=== PATIENT | male | born 2005 | race African-American/Black ===

== ENCOUNTER 2023-06-28 20:02 | Emergency (ER) | payer MEDICAID, SELFPAY ==
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
[2023-06-28 20:39] VITALS: BP 139/84; PULSE 61; RESP 16; TEMP 37; O2SAT 99; BMI 19.8
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
[2023-06-28] MEDS: Acetaminophen 325 MG TABLET 975 MG PO (22:56)
[2023-06-28] MEDS: Lidocaine 4 % Patch ADH..PATCH 1 PATCH TRANSDERMA (22:56)
[2023-06-28] MEDS: Ibuprofen 400 MG TABLET PO (22:56)
== END 2023-06-28 23:02 | disposition home or self-care (01) ==
PROVIDERS: Emergency Provider Student in an Organized Health Care Education/Training Program
DX: S16.1XXA Strain of muscle, fascia and tendon at neck level, initial encounter (principal); M54.2 Cervicalgia; R51.9 Headache, unspecified; M54.50 Low back pain, unspecified; V43.12XA Car passenger injured in collision with other type car in nontraffic accident, initial encounter; Y93.9 Activity, unspecified; Y92.410 Unspecified street and highway as the place of occurrence of the external cause; Y99.9 Unspecified external cause status
CPT/HCPCS: 72040; 72100; 99283

== ENCOUNTER 2023-12-18 02:58 | Emergency (ER) | payer MEDICAID, SELFPAY ==
[2023-12-18 03:02] VITALS: BP 163/93; PULSE 67; RESP 18; TEMP 36.8; O2SAT 97; BMI 18.8
--- NOTE | 2023-12-18 03:26 | ED_ITS ---
HPI - Allergic Reaction General Chief complaint: Allergic Reaction Stated complaint: allergic reaction Time Seen by Provider: 12/18/23 03:12 Source: patient and family (Mother) Mode of arrival: ambulatory Limitations: no limitations History of Present Illness HPI narrative: A 18-year-old male brought in by his mother for acute eruption of hives and itching after eating taco dip with lattice that was home made, patient and mother confirmed that patient had the same ingredient in the past without reaction. Never had allergic reaction in the past, no known allergies. Complaining of diffuse hives, itching, and swelling in the face, feels throat tightness with no difficulty breathing. Related Data Allergies Allergy/AdvReac Type Severity Reaction Status Date / Time No Known Allergies Allergy Verified 12/18/23 03:02 Review of Systems Review of Systems: All other systems are reviewed and are negative Constitutional: Reports as per HPI and Reports no additional constitutional complaints Eyes: Reports as per HPI and Reports no additional eye complaints Reports system reviewed and no additional complaints, except as documented Cardiovascular: Reports as per HPI and Reports no additional cardiovascular complaints Respiratory: Reports as per HPI and Reports no additional respiratory complaints Gastrointestinal: Reports as per HPI and Reports no additional gastrointestinal complaints Genitourinary: Reports no additional female genitourinary complaints Musculoskeletal: Reports no additional musculoskeletal complaints Skin/Breast: Reports system reviewed and no additional complaints, except as docu Psychiatric: Reports no additional psychiatric complaints Endocrine: Reports no additional endocrine complaints Hematologic/Lymphatic: Reports no additional hematologic/lymphatic complaints Allergic/Immunologic: Reports no additional allergic/immunologic complaints Reports system reviewed and no additional complaints, except as documented and Reports Abnormal speech present [facility] Social History Social History Alcohol intake: never Smoked in Last 30 Days: No Use of substances other than those prescribed or required for medical reasons: Yes Substance Use Type: Marijuana Substance Use Frequency: Daily Advance Directives: No Physical Exam ED Vital Signs: Vital Signs - 24 hr 12/18/23 03:02 Temperature 98.2 F Pulse Rate 67 Respiratory Rate 18 Blood Pressure 163/93 H Pulse Oximetry 97 Oxygen Delivery Method Room Air BMI result Body Mass Index 18.8 Vital signs have been reviewed and appear to be correct. Blood pressure elevated. Heart rate normal. Respiratory rate normal. Temperature normal. O xygen saturation normal. Appearance: Alert. Oriented X3. No acute distress. Head: Normal external exam. Normocephalic. Atraumatic. No Dent signs noted. No raccoon eyes noted Eyes: PERRLA. EOMI. Conjunctiva and sclera normal. Eyelids normal. ENT: TM's Normal. Pharynx normal. Uvula midline. Moist mucous membranes. No trismus noted. No drooling noted. No muffled voice noted. Neck: Normal inspection. Neck supple. FROM. No adenopathy. Thyroid Normal. No meningeal signs. No neck mass noted. CVS: Normal heart rate and rhythm. Heart sound normal. No murmurs noted. Pulses normal throughout. Respiratory: No respiratory distress. Painless inspiration. Breath sounds normal. No wheezes/rales/rhonchi noted. Chest nontender. No accessory muscle usage noted or decreased air movement noted. Abdomen: Soft and nontender. Bowel sounds normal in all 4 quadrants. No distention noted. No organomegaly noted. No visible injury noted. Back: No CVA tenderness. Full range of motion noted. Skin: Diffuse hives on extremities and torso, aubrey orbital swelling. Extremities: No lower extremity edema. Extremities exhibit normal range of motion. Extremities nontender. Neuro: Oriented X 3. Cranial nerve exam: II-XII are grossly intact No motor deficit. No sensory deficit. Reflexes normal. Course Reevaluation(s) Reevaluation #1: Complete resolution of patient's symptoms, patent airway. Patient is allergic to 1 of the ingredients of taco dip or lattice patient was instructed to avoid all the ingredient in the future. Time: 05:30 Medications Administered Discontinued Medications Generic Name Dose Route Start Last Admin Trade Name Aaronq PRN Reason Stop Dose Admin Diphenhydramine HCl 25 mg 12/18/23 03:12 12/18/23 03:31 Diphenhydramine Hcl 50 Mg/Ml Vial IVPUSH 12/18/23 03:13 25 mg ONCE ONE Administration Famotidine 20 mg 12/18/23 03:12 12/18/23 03:31 Famotidine/Pf 20 Mg/2 Ml Vial IVPUSH 12/18/23 03:13 20 mg ONCE ONE Administration Sodium Chloride 1,000 mls @ 999 mls/hr 12/18/23 03:12 12/18/23 04:40 Ns IV 12/18/23 04:12 Infused .Q1H1M ONE Infusion Methylprednisolone Sodium Succinate 125 mg 12/18/23 03:12 12/18/23 03:31 Methylprednisolone Sod Succ 125 Mg/2 Ml Vial IVPUSH 12/18/23 03:13 125 mg ONCE ONE Administration Medical Decision Making Differential Diagnosis Differential Diagnoses: The differential diagnosis associated with the presentation includes (Allergic reaction, airway compromise.) Admission/Observation Consideration of admission/observation: Escalation of care including admission/observation considered Critical Care Time Critical Care Time Critical Care Time: Yes Total Critical Care Time: 45 Attestation: I spent 60 minutes providing critical care service to the patient, this including time spent at the bedside to evaluate the patient, reassess the patient, monitoring vital signs, counseling the patient/family, disposition the patient. Discharge Plan Discharge Clinical Impression: Allergic reaction, Urticaria Patient Disposition: Home, Self-Care Instructions: Food Allergy (ED) Referrals: An Joaquin NP [Primary Care Provider] -
[2023-12-18] MEDS: Famotidine/PF 20 MG/2 ML VIAL IVPUSH (03:31)
[2023-12-18] MEDS: methylPREDNISolone Sod Succ 125 MG/2 ML VIAL IVPUSH (03:31)
[2023-12-18] MEDS: diphenhydrAMINE HCL 50 MG/ML VIAL 25 MG IVPUSH (03:31)
[2023-12-18] MEDS: 0.9 % Sodium Chloride 1,000 ML 999 ML IV (03:31)
[2023-12-18 06:02] VITALS: BP 117/61; PULSE 61; RESP 18; TEMP 36.8; O2SAT 98
== END 2023-12-18 06:04 | disposition home or self-care (01) ==
PROVIDERS: Emergency Provider Emergency Medicine; PCP Nurse Practitioner Family
DX: L50.0 Allergic urticaria (principal)
CPT/HCPCS: 96361; 96374; 96375; 99284; 99285; J1200; J2930